=== PATIENT | female | born 1985 | race Two or more races ===

== ENCOUNTER 2022-01-02 11:05 | Emergency (ER) | payer OTHER ==
[~2022-01-02] VITALS: Ht 167.6 cm; Wt 76.2 kg
[2022-01-02] MEDS ORDERED: LEVOTHYROXINE25 MC2 PO (11:44)
[2022-01-02] MEDS ORDERED: KETO10TA2 PO (11:45)
[2022-01-02] MEDS ORDERED: BACTRIM 400-801 EACH PO (14:51)
== END 2022-01-02 15:46 | disposition home or self-care (01) ==
LOC: ER 11:05
DX: N30.00 Acute cystitis without hematuria (principal); Z91.040 Latex allergy status